=== PATIENT | male | born 1960 | race Caucasian/White ===

== ENCOUNTER 2016-04-20 06:03 | Emergency (ER) | payer OTHER ==
[2016-04-20] MEDS ORDERED: LIDOCAINE 1% W/EPI MPF 10 ML SOL ONE (06:19)
[2016-04-20] MEDS ORDERED: LIDOCAINE 1% W/EPI MPF 10 ML SOL INFIL ONE (06:30)
[2016-04-20] MEDS ORDERED: TDAP VACCINE 0.5 ML SUS IM ONE ×2 (07:41→08:07)
[2016-04-20] MEDS ORDERED: BACITRACIN 500 U/GM OIN TOP ONE ×2 (07:42→08:11)
[2016-04-20 10:25] VITALS: TEMP 98.8
[2016-04-20 10:26] VITALS: BP 125/76; PULSE 75; RESP 20; O2SAT 95
== END 2016-04-20 10:00 | disposition home or self-care (01) | DRG 605 ==
LOC: ED 06:03
DX: S01.01XA Laceration without foreign body of scalp, initial encounter (principal); V63.5XXA Driver of heavy transport vehicle injured in collision with car, pick-up truck or van in traffic accident, initial encounter; Y92.411 Interstate highway as the place of occurrence of the external cause
CPT/HCPCS: 12004; 70450; 90471; 90715; 99284; 99285; G0390; A6402; A6446